=== PATIENT | female | born 1955 | race Caucasian/White ===

== ENCOUNTER 2020-09-03 08:10 | Emergency (ER) | payer MEDICARE ==
[~2020-09-03] VITALS: Ht 167.6 cm; Wt 100.0 kg
[~2020-09-03 08:10] MED LIST: cymbalta; enalapril; levothyroxine; tramadol
--- NOTE | 2020-09-03 08:21 | NUR ---
PT BIB EMS FOR CO SOB SINCE YESTERDAY. DENIES CHEST PAIN, FEVER OR COUGH. STATES SHE CANT CATCH HER BREATH. NO N/V. STATES HER NEIGHBORS HAVE COVID, BUT NO IN CONTACT W THEM FOR 3 WEEKS. EKG DONE, [employer] OPERATOR IN PLACE
[2020-09-03 08:51] LABS: BASOPHILS % (AUTO) 1 % (0-1); EOSINOPHILS % (AUTO) 1 % (1-7); LYMPHOCYTES % (AUTO) 34 % (22-44); MEAN CORPUSCULAR HEMOGLOBIN 32.5 pg (27.0-34.8); MEAN CORPUSCULAR HGB CONC 33.3 g/dL (32.4-35.8); MEAN PLATELET VOLUME 7.4 fL (7.4-10.4); MONOCYTES % (AUTO) 9 % (2-9); NEUTROPHILS % (AUTO) 55 % (42-75); PLATELET COUNT 184 x10^3/uL (130-400); RED BLOOD COUNT 4.26 x10^6/uL (3.82-5.3); RED CELL DISTRIBUTION WIDTH 13.4 % (9.6-15.2)
[2020-09-03 09:06] LABS: MD NO
[2020-09-03 09:09] LABS: CHLORIDE 108 mmol/L (98-107)
[2020-09-03 09:15] LABS: ALANINE AMINOTRANSFERASE 24 U/L (12-78); ALBUMIN 3.6 g/dL (3.4-5.0); ANION GAP 14 mmol/L (5-15); CALCIUM 8.2 mg/dL (8.5-10.1)
[2020-09-03 09:20] LABS: ALKALINE PHOSPHATASE 83 U/L (45-117); BILIRUBIN,TOTAL 1.1 mg/dL (0.2-1.0); CREATININE 0.92 mg/dL (0.55-1.02); TOTAL PROTEIN 7.4 g/dL (6.4-8.2); TROPONIN I < 0.015 ng/mL (0.000-0.045)
--- NOTE | 2020-09-03 09:55 | NUR ---
PIV PLACED FOR CTA.
--- NOTE | 2020-09-03 10:02 | NUR ---
PT TO CTA
[2020-09-03] MEDS ORDERED: ONDANSETRON 2MG/ML, 2ML ONE (10:21)
--- NOTE | 2020-09-03 10:25 | NUR ---
pt back from cta, contrast needs to be repeated, pt given zofran per dec. sharon barrow aware. fluids ordered. kidney function tests wnl. as
[2020-09-03] MEDS ORDERED: SODIUM CHLORIDE 0.9%, 500ML IVBOLUS ONE ×2 (10:30→11:30)
[2020-09-03] MEDS ORDERED: ONDANSETRON 2MG/ML, 2ML IVPush ONE (10:30)
[2020-09-03] MEDS ORDERED: PROMETHAZINE 25 MG/ML, 1ML ONE (10:39)
--- NOTE | 2020-09-03 10:44 | NUR ---
PT FEELING NAUSEAS AFTER CTA, PT GIVEN PHENERGAN. VSS
[2020-09-03] MEDS ORDERED: PROMETHAZINE 25 MG/ML, 1ML IM ONE (11:00)
--- NOTE | 2020-09-03 12:18 | NUR ---
Patient/Caregiver given discharge instructions and they have confirmed that they understand the instructions. Patient ambulatory with steady gait.
[2020-09-03 12:19] VITALS: BP 12/76
== END 2020-09-03 12:21 | disposition home or self-care (01) ==
LOC: ED 09:01
DX: R06.02 Shortness of breath (principal); Z20.828 Contact with and (suspected) exposure to other viral communicable diseases; R06.00 Dyspnea, unspecified; R07.89 Other chest pain; E03.9 Hypothyroidism, unspecified; R19.7 Diarrhea, unspecified; I10 Essential (primary) hypertension; M19.90 Unspecified osteoarthritis, unspecified site; Z90.49 Acquired absence of other specified parts of digestive tract; Z90.89 Acquired absence of other organs
CPT/HCPCS: 36415; 71045; 71275; 80053; 82728; 83615; 83880; 84484; 85025; 85379; 87635; 93005; 96372; 96374; 99285; J2405; J2550; J7040